=== PATIENT | female | born 1990 | race Caucasian/White ===

== ENCOUNTER 2016-03-15 13:41 | Emergency (ER) | payer OTHER ==
[~2016-03-15 13:41] MED LIST: BUSP10 PO; CEPH500C3 PO; TRAZ100 PO
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
[2016-03-15 15:20] LABS: AMPHETAMINE, URINE NEG (NEG); BARBITURATES, URINE NEG (NEG); COCAINE, URINE NEG (NEG)
[2016-03-15 15:22] LABS: BACTERIA, URINE OCC /hpf; BLOOD, URINE NEG (NEG); COMMENT (UR) CULTURE INDICATED; CULTURE IF INDICATED CULTURE INDICATED; GLUCOSE,URINE NEG (NEG); KETONE, URINE TRACE mg/dL (NEG); MUCUS URINE MANY /lpf (OCC); NITRITE,URINE NEG (NEG); SQUAMOUS EPITHELIAL CELL URINE 11 /hpf (0-5); URINE COLOR YELLOW (YELLW/STRAW)
[2016-03-15] MEDS ORDERED: CEPH-460 PO (15:32)
[2016-03-19 08:35] LABS: BATH SALTS (MDPV) UR NEG (NEG); ECSTASY (MDMA) UR NEG (NEG); HEROIN (6-ACETYLMORPHINE) UR NEG (NEG); K2 SPICE UR NEG (NEG); OBMETHADONE UR NEG (NEG); OXYCODONE (PERCODAN) NEG (NEG); PHENCYCLIDINE URINE NEG (NEG)
[2016-04-12] MEDS ORDERED: ZANT150T2 PO (15:59)
[2016-04-12] MEDS ORDERED: PREN1CAP17 PO (15:59)
[2016-04-19] MEDS ORDERED: METR500T10 PO (09:21)
== END 2016-03-15 15:56 | disposition home or self-care (01) ==
LOC: HOBED 13:41
DX: O23.42 Unspecified infection of urinary tract in pregnancy, second trimester (principal); O09.32 Supervision of pregnancy with insufficient antenatal care, second trimester; E86.0 Dehydration; B96.89 Other specified bacterial agents as the cause of diseases classified elsewhere; F12.90 Cannabis use, unspecified, uncomplicated; Z3A.24 24 weeks gestation of pregnancy; Z72.0 Tobacco use
CPT/HCPCS: 80307; 81001; 87086; 99284; G0481